=== PATIENT | female | born 1995 | race Caucasian/White ===

== ENCOUNTER → 2016-12-14 | Outpatient (CLI) | payer BC | LOC: GMAJ 14:46 | PROVIDERS: ATTEND Family Medicine | DX: Z00.00 Encounter for general adult medical examination without abnormal findings (principal) ==

== ENCOUNTER → 2017-10-04 | Outpatient (CLI) | payer BC | LOC: GMALS 16:35 | PROVIDERS: ATTEND Nurse Practitioner Acute Care | DX: R53.83 Other fatigue (principal) ==

== ENCOUNTER → 2017-10-29 | Outpatient (CLI) | payer BC | LOC: GMALS 12:30 | PROVIDERS: ATTEND Nurse Practitioner Acute Care | DX: D51.3 Other dietary vitamin B12 deficiency anemia (principal) ==